=== PATIENT | female | born 1970 ===

== ENCOUNTER 2024-10-07 02:24 | Outpatient (CLI) | payer MEDICAID, SELFPAY ==
[2024-10-07 12:15] LABS: Anion Gap 5.5 mmol/L (3-11); BUN 7 mg/dL (7-18); CO2 28.5 mmol/L (21.0-32.0); CREATININE 0.7 mg/dL (0.55-1.02); Calcium 10.4 mg/dL (8.5-10.1); Chloride 106 mmol/L (98-107); Estimated GFR 102.71 (mL/min/1.73m2); Glucose 75 mg/dL (74-106); Potassium 3.9 mmol/L (3.5-5.1); Sodium 140 mmol/L (136-145)
[2024-10-07 18:42] LABS: Parathyroid Hormone,Intact 134.3 pg/mL (19.0-88.0)
[2024-10-12 09:24] LABS: 25-Hydroxy D Total 15 ng/mL; 25-Hydroxy D2 <4.0 ng/mL; 25-Hydroxy D3 15 ng/mL
== END 2024-10-07 02:25 | disposition home or self-care (01) ==
LOC: LBO 02:25
PROVIDERS: PCP Family Medicine; Visit Provider Family Medicine
DX: E83.52 Hypercalcemia (principal)
CPT/HCPCS: 36415; 80048; 82306; 83970